=== PATIENT | male | born 1975 | race Caucasian/White ===

== ENCOUNTER 2016-12-30 13:59 | Inpatient (IN) | payer BC, OTHER ==
[~2016-12-30] VITALS: Ht 177.8 cm; Wt 83.9 kg
[~2016-12-30 13:59] MED LIST: ASCO250T5 PO; Bupropion Hcl PO; CLON0.1T14 PO; DICY20TA28 PO; FERR325T28 PO; GABA800T2 PO; Nicotine TD
[2016-12-30] MEDS ORDERED: LORAZEPAM 2 MG/1 ML VIAL IM PRN (14:30)
[2016-12-30] MEDS ORDERED: DIAZEPAM 5 MG TABLET PO PRN (14:30)
[2016-12-30] MEDS ORDERED: diphenhydrAMINE 50 MG CAPSULE PO PRN (14:30)
[2016-12-30] MEDS ORDERED: ONDANSETRON ODT 4 MG TAB.RAPDIS SL PRN (14:30)
[2016-12-30] MEDS ORDERED: ONDANSETRON 4 MG/2 ML VIAL IM PRN (14:30)
[2016-12-30] MEDS ORDERED: MAG HYDROX/AL HYDROX/SIMETH 30 ML LIQUID UDC PO PRN (14:30)
[2016-12-30] MEDS ORDERED: MAGNESIUM HYDROXIDE 30 ML LIQUID UDC PO PRN (14:30)
[2016-12-30] MEDS ORDERED: DIAZEPAM 10 MG TABLET PO PRN ×2 (14:30)
[2016-12-30] MEDS ORDERED: MIRALAX 17 GM POWD.PACK PO PRN (14:30)
[2016-12-30] MEDS ORDERED: ACETAMINOPHEN 325 MG TABLET PO PRN (14:30)
[2016-12-30] MEDS ORDERED: CLONIDINE HCL 0.1 MG TABLET PO PRN (14:30)
[2016-12-30] MEDS ORDERED: DICYCLOMINE HCL 20 MG TABLET PO PRN (14:30)
[2016-12-30] MEDS ORDERED: IBUPROFEN 600 MG TABLET PO PRN (14:30)
[2016-12-30] MEDS ORDERED: LOPERAMIDE HCL 2 MG CAPSULE PO PRN ×2 (14:30)
[2016-12-30] MEDS ORDERED: BUPRENORPHINE HCL 2 MG TAB.SUBL SL PRN (14:30)
[2016-12-30] MEDS ORDERED: METHOCARBAMOL 750 MG TABLET PO PRN (14:30)
[2016-12-30 15:12] LABS: *AMPHETAMINE, URINE NEGATIVE (NEGATIVE); *BARBITURATE, URINE NEGATIVE (NEGATIVE); *CANNABINOID, URINE POSITIVE (NEGATIVE); *COCCAINE, URINE NEGATIVE (NEGATIVE); *OPIATE, URINE POSITIVE (NEGATIVE); *PHENCYCLIDINE SCREEN,URINE NEGATIVE (NEGATIVE)
[2016-12-30 15:35] LABS: BASOPHILS # (AUTO) 0.1 K/uL (0.0-8.0); BASOPHILS % (AUTO) 1.6 % (0.0-2.0); EOSINOPHILS # (AUTO) 0.3 K/uL (0.0-0.7); EOSINOPHILS % (AUTO) 4.7 % (0.0-7.0); HEMATOCRIT 42.3 % (40-50); HEMOGLOBIN 13.4 G/DL (14.0-18.0); LYMPHOCYTES # (AUTO) 1.2 K/UL (0.8-4.8); MEAN CORPUSCULAR HEMOGLOBIN 26.2 UUG (27.0-31.0); MEAN CORPUSCULAR HGB CONC 32 g/dL (32.0-37.0); MEAN CORPUSCULAR VOLUME 82.4 FL (82.0-92.0); MONOCYTES # (AUTO) 0.5 K/UL (0.1-1.30); MONOCYTES % (AUTO) 8.8 % (0.0-11.0); NEUTROPHILS # (AUTO) 3.8 K/UL (1.8-8.9); NEUTROPHILS % (AUTO) 63.9 % (38.5-71.5); PLATELET COUNT (AUTO) 186 K/UL (150-450); RED BLOOD CELL COUNT(AUTO) 5.13 MIL/UL (4.7-6.1); WHITE BLOOD COUNT (AUTO) 5.9 K/UL (4.0-11.2)
[2016-12-30 15:38] LABS: ALANINE AMINOTRANSFERASE 54 U/L (16-63); ALKALINE PHOSPHATASE 49 U/L (50-136); ASPARTATE AMINOTRANSFERASE 25 U/L (15-37); BILIRUBIN,TOTAL 0.4 mg/dL (0.2-1.0); CARBON DIOXIDE 33 mmol/L (21-32); CHLORIDE 101 mmol/L (98-107); CREATININE 1.2 mg/dL (0.6-1.3); GLUCOSE 104 mg/dL (74-106); MAGNESIUM 1.9 mg/dL (1.8-2.4); POTASSIUM 4.5 mmol/L (3.5-5.1); TOTAL PROTEIN, SERUM 7.6 g/dL (6.4-8.2); UREA NITROGEN, BLOOD 9 mg/dL (7-18)
[2016-12-30 15:41] LABS: ETHANOL < 3 MG/DL (0-0)
[2016-12-30] MEDS ORDERED: BUPR300T52 PO (17:51)
--- NOTE | 2016-12-30 17:55 | NUR ---
Admission Note VS: BP: 114/72 HR: 84, SpO2: 98% RA, RR: 16, Temp: 98.2 Pain:0 Height:5'10" Weight: 185LB Allergies: TIANA Pt is a 41 y/o male admitted to [facility] on 12/30/16 at 1445. Pt has been admitted for Heroin and Xanax withdrawals under the care of Dr Dhlilon. Pt denies suicidal and homicidal ideations at this time. Pt denies Chest Pain and SOB. Pt did not bring any home medications with him but reports taking Gabapentin 800mg x4 and Wellbutrin 450mg x1. Pt reports living at sober living. Upon assessment skin intact. Pt denies history of falls. CIWA 3, COWS 3 upon admission for mild anxiety and agitation. A/Ox4 and able to answer questions necessary for the admission process. Pt denies having a PCP. Full Code. VS WNL, Regular Diet. Pt reports Hx of a seizures, last seizure 3 years ago due to benzo withdrawals. Pt denies any history of suicide attempts. Breathing is even and unlabored, SpO2 is 98% on RA. Pt ambulates with steady gait. Pt reports regular daily BM. Pt reports that he smokes 1 pack a day. Urine has been collected for UDS. All needs have been met. Pt has been oriented to the room and the unit. All safety measures in place per hospital policy. Bed in lowest position, side rails up x2 and padded, call-light within reach. Will continue to monitor. Substance Abuse: 1. Heroin 1g IV daily for 1month: Last use. 12/29/16 0.5-1g IV 2. Xanax 9-10mg orally daily for 1 month. Last use: 12/27/16 3mg orally
[2016-12-30] MEDS ORDERED: NICOTINE POLACRILEX 4 MG GUM-PK OF TEN BC PRN (19:00)
[2016-12-30] MEDS ORDERED: NICOTINE 14 MG/24HR PATCH TD PRN (19:00)
--- NOTE | 2016-12-30 19:22 | NUR ---
End of Shift Endorsement given to nightshift nurse. Pt has not received any PRN medications. Pt is a 41 y/o male admitted to [facility] on 12/30/16 at 1445. Pt has been admitted for Heroin and Xanax withdrawals under the care of Dr Dhillon. Pt denies suicidal and homicidal ideations at this time. Pt denies Chest Pain and SOB. Pt did not bring any home medications with him but reports taking Gabapentin 800mg x4 and Wellbutrin 450mg x1. Pt reports living at sober living. Upon assessment skin intact. Pt denies history of falls. CIWA 3, COWS 3 upon admission for mild anxiety and agitation. A/Ox4 and able to answer questions necessary for the admission process. Pt denies having a PCP. Full Code. VS WNL, Regular Diet. Pt reports Hx of a seizures, last seizure 3 years ago due to benzo withdrawals. Pt denies any history of suicide attempts. Breathing is even and unlabored, SpO2 is 98% on RA. Pt ambulates with steady gait. Pt reports regular daily BM. Pt reports that he smokes 1 pack a day. Urine has been collected for UDS. All needs have been met. Pt has been oriented to the room and the unit. All safety measures in place per hospital policy. Bed in lowest position, side rails up x2 and padded, call-light within reach. Will continue to monitor. Substance Abuse: 1. Heroin 1g IV daily for 1month: Last use. 12/29/16 0.5-1g IV 2. Xanax 9-10mg orally daily for 1 month. Last use: 12/27/16 3mg orally
--- NOTE | 2016-12-30 19:23 | NUR ---
Start of shift note Received report from day shift nurse. Pt is a 41 yo male, A+Ox4, presenting to [facility] for Opiate/Benzo dependence. Pt has NKA, is on Full code status, and on Regular diet. Pt is on Fall and Seizure precautions. Pt has HX of Anxiety, Depression, Bipolar, and Seizure. Pt is on 5 day Valium and 5 day Subutex tapers, tolerated well. No s/s of distress noted at this time. Respirations even and unlabored. Will continue to monitor.
[2016-12-30 20:11] VITALS: BP 128/61
[2016-12-30] MEDS: GABAPENTIN 400 MG CAPSULE PO SCH (20:19)
[2016-12-30] MEDS ORDERED: BUPRENORPHINE HCL 2 MG TAB.SUBL SL SCH (21:00)
[2016-12-30] MEDS ORDERED: DIAZEPAM 10 MG TABLET PO SCH (21:00)
[2016-12-31 00:54] VITALS: BP 124/65
[2016-12-31 04:12] VITALS: BP 126/68
--- NOTE | 2016-12-31 06:50 | NUR ---
End of shift note Pt is a 41 yo male, A+Ox4, presenting to [facility] for Opiate/Benzo dependence. Pt has NKA, is on Full code status, and on Regular diet. Pt is on Fall and Seizure precautions. Pt has HX of Anxiety, Depression, Bipolar, and Seizure. Pt is on 5 day Valium and 5 day Subutex tapers, tolerated well. Pt slept for a total of 4 HRS. Last COWS: 3 and Last CIWA: 3 @0400. No s/s of distress noted at this time. Respirations even and unlabored. Will endorse to day shift nurse.
--- NOTE | 2016-12-31 07:10 | NUR ---
Start of Shift Endorsement received from nightshift nurse. Pt is a 41 y/o male admitted for Heroin and Xanax dependence. Pt has been placed on a 4 day Valium and 4 day Subutex taper set to began 12/31/16. Pt is tolerating the detox process AEB COWS 3, CIWA 3 at 0400. Pt did not receive any PRN medications. Pt reports sleeping 4 hours and reports feeling tired. VS WNL. Full Code. PT is alert and oriented x4. Pt is in STABLE condition at this time. Remains compliant with medication and diet regimen. All needs have been met, All safety measures in place per hospital policy. Bed in lowest position, side rails up x2, call-light within reach. Will continue to monitor
[2016-12-31 08:00] VITALS: BP 130/74
[2016-12-31] MEDS: GABAPENTIN 400 MG CAPSULE PO SCH ×4 (08:44→20:14)
[2016-12-31] MEDS: BUPRENORPHINE HCL 2 MG TAB.SUBL SL SCH ×3 (08:45→20:16)
[2016-12-31] MEDS: DIAZEPAM 10 MG TABLET PO SCH ×3 (08:45→20:14)
[2016-12-31] MEDS ORDERED: TUBERCULIN,PURIF.PROT.DERIV. 5 TU/0.1 ML TEST ID ONE (09:00)
[2016-12-31 11:07] LABS: HEPATITIS B SURFACE AG Negative (Negative)
[2016-12-31 12:00] VITALS: BP 102/62
[2016-12-31] MEDS ORDERED: HYDROXYZINE PAMOATE 25 MG CAPSULE PO PRN (13:15)
[2016-12-31 16:00] VITALS: BP 109/59
--- NOTE | 2016-12-31 18:38 | NUR ---
End of Shift Endorsement given to nightshift nurse. Pt is a 41 y/o male admitted for Heroin and Xanax dependence. Pt has been placed on a 4 day Valium and 4 day Subutex taper set to began 12/31/16. Pt is tolerating the detox process AEB COWS 7, CIWA 4 at 1600. Pt did not receive any PRN medications. Pt participated in groups and activities. Educated pt on diet and medication regimen. VS WNL. Full Code. PT is alert and oriented x4. Pt is in STABLE condition at this time. Remains compliant with medication and diet regimen. All needs have been met, All safety measures in place per hospital policy. Bed in lowest position, side rails up x2, call-light within reach. Will continue to monitor
[2016-12-31 20:00] VITALS: BP 111/75
--- NOTE | 2016-12-31 20:00 | NUR ---
START OF SHIFT NOTE RECEIVED REPORT FROM DAY SHIFT NURSE. PATIENT IS A 41 YEAR OLD MALE ADMITTED FOR OPIATE AND BENZO DEPENDENCE. PATIENT IS ON 4 DAY ATIVAN AND 4 DAY SUBUTEX TAPER. PATIENT REPORTS PMH OF ANXIETY, DEPRESSION , BIPOLAR AND SEIZURE, LAST ONE WAS 3 YEARS AGO. ON FALL/SEIZURE PRECAUTION. SKIN INTACT. PATIENT DID NOT REQUIRE ANY PRN MEDICATION. LAST COWS 7 AND CIWA 4. RECEIVED PATIENT IN THE ROOM, ALERT AND ORIENTED X 4. RESPIRATION EVEN AND UNLABORED. PATIENT REPORTS ANXIETY, SWEATING , N/V, ATTEND GROUPS, HE STATES HIS APPETITE IS BACK AND HAS BACK ACHE 3/10, TOLERABLE. SAFETY MEASURES IN PLACE. CALL LIGHT IN REACH. WILL CONTINUE TO MONITOR.
[2017-01-01] VITALS: BP 110/70
--- NOTE | 2017-01-01 | NUR ---
COWS/CIWA DEFERRED PATIENT SLEEPING. COWS AND CIWA DEFERRED. RESPIRATION EVEN AND UNLABORED. SAFETY MEASURES IN PLACE. CALL LIGHT IN REACH. WILL CONTINUE TO MONITOR
[2017-01-01 04:00] VITALS: BP 114/66
--- NOTE | 2017-01-01 04:00 | NUR ---
COWS/CIWA DEFERRED PATIENT SLEEPING. COWS AND CIWA DEFERRED. RESPIRATION EVEN AND UNLABORED. SAFETY MEASURES IN PLACE. CALL LIGHT IN REACH. WILL CONTINUE TO MONITOR
--- NOTE | 2017-01-01 06:53 | NUR ---
END OF SHIFT NOTE PATIENT IS A 41 YEAR OLD MALE ADMITTED FOR OPIATE AND BENZO DEPENDENCE. PATIENT IS ON 4 DAY ATIVAN AND 4 DAY SUBUTEX TAPER, TOLERATED WELL, NO ADVERSE REACTION. PATIENT DID NOT REQUIRE ANY PRN MEDICATION. PATIENT COMPLIANT WITH MEDICATION AND TREATMENT PLAN. PER PATIENT MEDICATIONS ARE EFFECTIVE IN CONTROLLING HIS WITHDRAWAL SYMPTOMS. PATIENT ATTEND GROUPS. EATING AND DRINKING FLUIDS WELL. SAFETY MEASURES IN PLACE. CALL LIGHT IN REACH. WILL CONTINUE TO MONITOR. SLEPT 8 HOURS. FLUID INTAKE 795 ML. VOIDED X 2. NO BM. LAST COWS 7 AND CIWA 5.
--- NOTE | 2017-01-01 07:20 | NUR ---
BEGINNING OF SHIFT Patient endorsement report received from cnc machinist 2nd shift nurse, all pertinent information discussed. Patient is a 41 year old male admitted on: 12/30/2016 with admitting Dx: opiate/bzo dependence. Patient currently with ongoing 4 day Valium and 4 day Subutex taper as ordered. Medications well tolerated. Per cnc machinist 2nd shift patient received no PRN during shift. Patient with last cow score of: 7 and last ciwa score of: 5. Patient slept for 8 hours. Patient received awake, alert and oriented x4, educated patient regarding plan of care for the day and medication regimen with good verbal understanding. Safety masques in lace. call light kept with in reach, Fall and seizure precautions in place. will continue to monitor closely.
[2017-01-01 08:13] VITALS: BP 110/65
[2017-01-01] MEDS: GABAPENTIN 400 MG CAPSULE PO SCH ×4 (08:39→21:46)
[2017-01-01] MEDS: DIAZEPAM 5 MG TABLET PO SCH ×2 (08:39→14:12)
[2017-01-01] MEDS: buPROPion XL 150 MG TAB.SR.24H PO SCH (08:40)
[2017-01-01] MEDS: BUPRENORPHINE HCL 2 MG TAB.SUBL SL SCH ×3 (08:40→21:48)
[2017-01-01 13:40] VITALS: BP 105/66
--- NOTE | 2017-01-01 14:11 | NUR ---
THerapist prompted client to attend group today. Client agreed to attend.
[2017-01-01] MEDS ORDERED: KETOROLAC TROMETHAMINE 30 MG INJ IM PRN (15:30)
[2017-01-01 16:52] VITALS: BP 97/64
--- NOTE | 2017-01-01 17:15 | NUR ---
PRN ROBAXIN Patient c/o muscle aches 08/25, provided with non pharmacological interventions with no relief, administered Robaxin as ordered, will monitor effectiveness.
--- NOTE | 2017-01-01 18:15 | NUR ---
ROBAXIN REASSESSMENT Patient reports medication effective, current pain level 0/10. Will conitnue to monitor.
--- NOTE | 2017-01-01 18:58 | NUR ---
END OF SHIFT Patient alert and oriented x4, patient compliant with therapeutic plan of care. vital signs were stable during shift. Patient continues with ongoing 4 day Valium and 4 day Subutex tapers as ordered, well tolerated, no ASE noted. 0900 assessment patient presented with: c/o chills, difficulty sitting still, mild bone and joint aches, nasal stuffiness, stomach cramps, yawning x1, irritable, anxiety, tremors that can be felt but not seen, and mild agitation with cow score of: 9 and ciwa score of: 6; 1300 assessment patient presented with: c/o chills, mild bone and joint aches, stomach cramps, tremors that can be felt but seen, anxiety, barely sweating with cow score of: 7 and ciwa score of: 5; 1700 assessment patient presented with: c/o chills, mild bone and joint aches, stomach cramps, tremors that can be felt but seen, anxiety, barely sweating with cow score of: 7 and ciwa score of: 5. Patient encouraged adequate PO fluid intake as tolerated, Encouraged to attend group therapies/sessions to learn new coping skills to prevent relapse, denies any SI/HI. Patient administered PRN: Robaxin as ordered, medication effective. Patients safety measures are in place. all needs met and rendered. Patient endorsement report given to wire coiler nurse, all pertinent information discussed. Safety measurers in place. will continue to monitor.
[2017-01-01 20:00] VITALS: BP 133/67
--- NOTE | 2017-01-01 20:00 | NUR ---
START OF SHIFT Received report from day shift nurse. Pt attended a group meeting and returned to his room after. He is a 41 yo male admitted to [facility] on 12/30 for opiate and BZD dependence. He is A&O and ambulatory NKA, full code status, and on a regular diet. He has a PMH of seizure, anxiety, depression, and bipolar. On admission he reported using heroin 1 gram per day and Xanax 9-10mg per day. 4 day valium and 4 day Subutex taper started 12/31. He reports chills, hot and cold flashes, and mild headache. Tapers due tonight. Fall and seizure precautions in place. Bed is down with call light in reach.
[2017-01-01] MEDS ORDERED: DIAZEPAM 10 MG TABLET PO SCH (21:00)
[2017-01-01] MEDS: BACLOFEN 10 MG TABLET PO SCH (21:46)
[2017-01-02] VITALS: BP 125/84
--- NOTE | 2017-01-02 | NUR ---
0000 COWS and CIWA deferred COWS and CIWA ordered Q4HWA. Pt is lying in bed resting with eyes closed. Vital signs obtained. Safety measures in place.
--- NOTE | 2017-01-02 04:00 | NUR ---
0400 Vitals refused/COWS and CIWA deferred Pt refused to be woken for 0400 vitals. He is lying in bed resting with eyes closed. Respirations even and unlabored. COWS and CIWA ordered Q4HWA. Safety measures in place.
--- NOTE | 2017-01-02 07:25 | NUR ---
END OF SHIFT Report provided to day shift nurse. Pt is lying in bed resting. He is a 41 yo male admitted to [facility] on 12/30 for opiate and BZD dependence. He is A&O and ambulatory NKA, full code status, and on a regular diet. He has a PMH of seizure, anxiety, depression, and bipolar. On admission he reported using heroin 1 gram per day and Xanax 9-10mg per day. 4 day valium and 4 day Subutex taper started 12/31. He is compliant with treatment. No PRN medications administered. Last COWS 5 and CIWA 6 before night medications. He drank 1650mL and slept for 7 hours. Tapers due tonight. Fall and seizure precautions in place. Bed is down with call light in reach.
[2017-01-02 08:00] VITALS: BP 112/65
--- NOTE | 2017-01-02 08:00 | NUR ---
START OF SHIFT 41 year old male admitted on 12/30 for opiate and benzo dependence. NKA, full code status, and on a regular diet. PMH of seizure, anxiety, depression, and bipolar disorder. On 4 day valium and 4 day Subutex taper started 12/31. History of treatment at [facility] in 01/2016 and 02/2016. Received report from night RN. PT slept for 7 hours. COWS 5 and CIWA 6 at 2145. On fall and seizure precautions. 0800 nursing rounds, pt is alert and oriented. Bed in low position and locked, call verde within reach, side rails up x 2 and padded. Will continue to monitor.
[2017-01-02] MEDS: buPROPion XL 150 MG TAB.SR.24H PO SCH (08:34)
[2017-01-02] MEDS: BACLOFEN 10 MG TABLET PO SCH ×2 (08:34→14:27)
[2017-01-02] MEDS: GABAPENTIN 400 MG CAPSULE PO SCH ×4 (08:34→21:25)
[2017-01-02] MEDS ORDERED: DIAZEPAM 5 MG TABLET PO SCH (09:00)
[2017-01-02] MEDS ORDERED: BUPRENORPHINE HCL 2 MG TAB.SUBL SL SCH (09:00)
[2017-01-02 12:00] VITALS: BP 116/54
--- NOTE | 2017-01-02 14:27 | NUR ---
PRN MEDICATION ADMINISTRATION Pt states he has not had a bowel movement in 2-3 days. Given Miralax PRN. Will reassess.
[2017-01-02] MEDS: DIAZEPAM 10 MG TABLET PO SCH ×2 (14:45→21:25)
[2017-01-02] MEDS: BUPRENORPHINE HCL 2 MG TAB.SUBL SL SCH ×2 (14:46→21:25)
--- NOTE | 2017-01-02 15:27 | NUR ---
PRN MEDICATION REASSESSMENT Pt states no BM since Miralax given one hour ago. Will continue to monitor.
--- NOTE | 2017-01-02 17:04 | NUR ---
TRANSITION OF CARE 41 year old male admitted on 12/30 for opiate and benzo dependence. NKA, full code status, and on a regular diet. PMH of seizure, anxiety, depression, and bipolar disorder. On 4 day valium and 4 day Subutex taper started 12/31. History of treatment at [facility] in 01/2016 and 02/2016. Report given to charge master specialist Leah. Last COW 4 and CIWA 2 at 1200. PRN Miralax given at 1427. No BM as of 1527. Bed in low position and locked, call verde within reach, side rails up x 2 and padded. Will continue to monitor.
--- NOTE | 2017-01-02 17:42 | NUR ---
Therapist prompted client to attend groups today,. Client did attend group.
[2017-01-02 17:53] VITALS: BP 129/76
--- NOTE | 2017-01-02 19:56 | NUR ---
end of shift note: pt is in stable condition at this time no s/s of pain or discomfort. pt is admitted to [facility] for opiate/benzo withdrawal/dependence. pts last cows 4 and last ciwa 2. pt without A/R noted pt tolerating well. will endorse pt to technician plant and maintenance nurse.
[2017-01-02 20:00] VITALS: BP 103/68
--- NOTE | 2017-01-02 20:00 | NUR ---
START OF SHIFT Received report from day shift nurse. Pt attended a group meeting and returned to his room after. He is a 41 yo male admitted to [facility] on 12/30 for opiate and BZD dependence. He is A&O and ambulatory NKA, full code status, and on a regular diet. He has a PMH of seizure, anxiety, depression, and bipolar. On admission he reported using heroin 1 gram per day and Xanax 9-10mg per day. 4 day valium and 4 day Subutex taper started 12/31. He reports anxiety and mild headache. Tapers due tonight. Fall and seizure precautions in place. Bed is down with call light in reach.
[2017-01-02] MEDS: BACLOFEN 20 MG TABLET PO SCH (21:25)
--- NOTE | 2017-01-03 | NUR ---
0000 Vitals refused/COWS and CIWA deferred Pt refused to be woken for 0400 vitals. He is lying in bed resting with eyes closed. Respirations even and unlabored. COWS and RICARDO ordered Q4HWA. Safety measures in place. Addendum: 01/03/17 at 0558 by ZULEYKA JOHNSON RN Pt refused to be woken for 0000 vitals.
--- NOTE | 2017-01-03 07:21 | NUR ---
END OF SHIFT Report provided to day shift nurse. Pt. is lying in bed resting. He is a 41 yo male admitted to [facility] on 12/30 for opiate and BZD dependence. He is A&O and ambulatory. NKA, full code status, and on a regular diet. He has a PMH of seizure, anxiety, depression, and bipolar. On admission he reported using heroin 1 gram per day and Xanax 9-10mg per day. Modified valium and 4 day Subutex taper started 12/31. He is compliant with treatment. Tapers are working well to manage withdrawal symptoms. No PRN medications administered. Last COWS 3 and CIWA 3 before medications. He drank 1000mL and slept for 9 hours. Fall and seizure precautions in place. Bed is down with call light in reach.
--- NOTE | 2017-01-03 07:38 | NUR ---
START OF SHIFT Pt is a 41 yr old male, A&Ox3. Pt was admitted on 12/30/16 for Opiate/Benzo Dependence and is on 4 day Valium and 4 day Subutex taper as ordered. Medication joann well. Received report from product promoter retail pet nurse. No PRN's were given during the night. Last COWS score was 3 and CIWA score was 3 at 2000. Pt slept for 9 hrs. Pt is full code, regular diet and NKA. Pt is currently in bed, resting with respirations even and unlabored. No acute distress noted. Skin is intact, warm and dry to touch. Pt is on fall and seizure precautions. Bed kept in low positions and locked with side rails up x2. Call light is within reach. Will continue to monitor.
[2017-01-03 08:00] VITALS: BP 125/71
[2017-01-03] MEDS ORDERED: DIAZEPAM 5 MG TABLET PO SCH (09:00)
[2017-01-03] MEDS ORDERED: BUPRENORPHINE HCL 2 MG TAB.SUBL SL SCH (09:00)
[2017-01-03] MEDS: BACLOFEN 20 MG TABLET PO SCH ×3 (09:22→20:39)
[2017-01-03] MEDS: DIAZEPAM 5 MG TABLET PO SCH ×2 (09:23→20:39)
[2017-01-03] MEDS: GABAPENTIN 400 MG CAPSULE PO SCH ×2 (09:23→12:38)
[2017-01-03] MEDS: buPROPion XL 150 MG TAB.SR.24H PO SCH (09:23)
[2017-01-03] MEDS: BUPRENORPHINE HCL 2 MG TAB.SUBL SL SCH ×2 (09:23→20:39)
--- NOTE | 2017-01-03 12:30 | NUR ---
RESUMED CARE Resumed care of client, all pertinent information received.
[2017-01-03] MEDS ORDERED: METHYL SALICYLATE/MENTHOL CREAM 28 GM TUBE TOP PRN (12:45)
[2017-01-03] MEDS: NICOTINE 14 MG/24HR PATCH TD SCH (13:00)
[2017-01-03] MEDS ORDERED: NAPROXEN 500 MG TABLET PO PRN (13:00)
[2017-01-03 13:01] VITALS: BP 111/62
--- NOTE | 2017-01-03 13:36 | NUR ---
REFUSING NICOTINE PATCH Pt states "I don't want the patch yet." Education on smoking cessation provided.
[2017-01-03] MEDS: GABAPENTIN 300 MG CAPSULE PO SCH ×2 (16:43→20:39)
--- NOTE | 2017-01-03 16:54 | NUR ---
PRN MAALOX Pt c/o heartburn. PRN Maalox administered as ordered. Will reassess.
[2017-01-03 16:55] VITALS: BP 116/68
--- NOTE | 2017-01-03 17:54 | NUR ---
REASSESSMENT Pt states medication was not effective, MD ordered CXR, and EKG at this time.
--- NOTE | 2017-01-03 19:00 | NUR ---
Start of Shift Patient Received. Patient is in his room sleeping. Breathing even and non labored. No signs of pain or discomfort noted. Patient is a 41 year old male admitted on 12/30/16 for Opiate and Benzo Dependence under the care of Dr. Dhillon. Patient is currently receiving a 4 day Subutex taper and 4 day Valium taper. Patient verbalizes no known allergies, wishes to be full code, following a regular diet, placed on fall and seizure precautions, with skin noted intact. Past medical history of anxiety, depression, Bipolar, and history of seizures 3 years ago. Per endorsement, patient was given PRN Maalox for heart burn with medication noted to be effective. Patient was also verbalizing chest pain. EKG ordered and noted to be WNL. Last noted COWS 2 and CIWA 2. All needs attended to promptly. Will continue plan of care as ordered.
--- NOTE | 2017-01-03 19:04 | NUR ---
END OF SHIFT Most recent COWS 2 and CIWA 2 at 1700. PRN Maalox administered and not effective. EKG is WNL. Chest X ray results are pending at this time, night nurse to follow up. V/S remain WNL. Heart rate is WNL, rhythm is sinus normal. Eats 100% of meals, denies BM on this shift. Pt encouraged to attend groups and activities. Pt socializes with peers. Safety measures are in place, night nurse to continue monitoring.
[2017-01-03 20:35] VITALS: BP 121/74
[2017-01-03] MEDS: NAPROXEN 500 MG TABLET PO SCH (20:39)
[2017-01-04 00:25] VITALS: BP 119/76
[2017-01-04 04:03] VITALS: BP 116/79
--- NOTE | 2017-01-04 07:16 | NUR ---
End of Shift Patient is in his room sleeping. Breathing even and non labored. No signs of pain or discomfort noted. Patient is a 41 year old male admitted on 12/30/16 for Opiate and Benzo Dependence and continues on a 4 day Subutex taper and 4 day Valium taper. No Known Allergies, Full Code, following a regular diet, placed on fall and seizure precautions, with skin noted intact. Past medical history of anxiety, depression, Bipolar, and history of seizures 3 years ago. No PRN Medications administered. Last noted CIWA 4 and COWS 2. All needs attended to promptly. Will endorse to continue plan of care as ordered.
--- NOTE | 2017-01-04 07:30 | NUR ---
START OF SHIFT Pt is a 41 yr old male, A&Ox3. Pt was admitted on 12/30/16 for Opiate/Benzo Dependence and is on 4 day Valium and 4 day Subutex taper as ordered. Medication joann well. Received report from night supervisor nurse. No PRN's were given during the night. Last COWS score was 2 and CIWA score was 4 at 2000. Pt slept for 9 hrs. Pt is full code, regular diet and NKA. Pt is currently in bed, resting with respirations even and unlabored. No acute distress noted. Skin is intact, warm and dry to touch. Pt is on fall and seizure precautions. Bed kept in low positions and locked with side rails up x2. Call light is within reach. Will continue to monitor.
[2017-01-04 08:00] VITALS: BP 122/64
[2017-01-04] MEDS: NICOTINE 14 MG/24HR PATCH TD SCH (09:00)
[2017-01-04] MEDS ORDERED: BUPRENORPHINE HCL 2 MG TAB.SUBL SL SCH (09:00)
[2017-01-04] MEDS ORDERED: DIAZEPAM 5 MG TABLET PO SCH (09:00)
[2017-01-04] MEDS: BACLOFEN 20 MG TABLET PO SCH ×3 (09:12→20:36)
[2017-01-04] MEDS: buPROPion XL 150 MG TAB.SR.24H PO SCH (09:12)
[2017-01-04] MEDS: FAMOTIDINE 20 MG TABLET PO SCH (09:13)
[2017-01-04] MEDS: NAPROXEN 500 MG TABLET PO SCH ×2 (09:13→20:36)
[2017-01-04] MEDS: GABAPENTIN 300 MG CAPSULE PO SCH ×5 (09:13→20:36)
--- NOTE | 2017-01-04 09:17 | NUR ---
NICODERM PATCH HELD Pt states of wanting to smoke today during the day. pt was educated on smoking cessation but refused to apply NicoDerm patch as ordered. Will continue to monitor.
[2017-01-04 13:18] VITALS: BP 123/74
[2017-01-04 16:00] VITALS: BP 105/52
--- NOTE | 2017-01-04 18:53 | NUR ---
END OF SHIFT Pt is a 41 yr old male, A A&Ox4. Pt was admitted on 12/30/16 for Opiate/Benzo Dependence and is on 4 day Valium and 4 day Subutex taper as ordered. Medication joann well. Pt has been cooperative with medication regimen and plan of care. Pt refused to attend group sessions. No PRNs were given during the day. Last COWS score was 2 and CIWA score was 1 at 1600. Pt is full code, regular diet and NKA. Pt denies any anxiety at this time. Skin is intact, warm and dry to touch. Pt is to be discharged tomorrow on 01/05/17. Pt is on fall and seizure precautions. Bed kept in low positions and locked with side rails up x2. Call light is within reach.
--- NOTE | 2017-01-04 19:00 | NUR ---
Start of Shift Patient Received. Patient is in group activities participating in group activities. Patient is a 41 year old male admitted on 12/30/16 for Opiate and Benzo Dependence and completed a 4 day Subutex and 4 day Valium taper. No Known Allergies, Full Code, following a regular diet, placed on fall and seizure precautions, with skin noted intact. Past medical history of anxiety, depression, Bipolar, and history of seizures 3 years ago. No PRN Medications administered. Last noted CIWA 2 and COWS 3. Patient is set for discharge tomorrow 01/05/17. All needs attended to promptly. Will continue plan of care as ordered.
[2017-01-04] MEDS ORDERED: GABA-534 PO (20:22)
[2017-01-04] MEDS ORDERED: FAMO20TA8 PO (20:22)
[2017-01-04] MEDS ORDERED: NAPR500T3 PO (20:22)
[2017-01-04] MEDS ORDERED: DICY20TA28 PO (20:22)
[2017-01-04] MEDS ORDERED: DIPH50CA37 PO (20:22)
[2017-01-04] MEDS ORDERED: NICO1PAT25 TD (20:22)
[2017-01-04] MEDS ORDERED: BACL20TA PO (20:22)
[2017-01-04] MEDS ORDERED: HYDR-3895 PO (20:22)
[2017-01-04 20:33] VITALS: BP 129/81
[2017-01-05 00:02] VITALS: BP 122/73
[2017-01-05 04:20] VITALS: BP 125/83
--- NOTE | 2017-01-05 07:04 | NUR ---
End of Shift Patient is in his room, awake, alert and verbally responsive. Breathing even and non labored. Patient is a 41 year old male admitted on 12/30/16 for Opiate and Benzo Dependence and completed a 4 day Subutex and 4 day Valium taper. No Known Allergies, Full Code, following a regular diet, placed on fall and seizure precautions, with skin noted intact. Past medical history of anxiety, depression, Bipolar, and history of seizures 3 years ago. No PRN Medications administered. Last noted CIWA 2 and COWS 3. Patient is set for discharge today 01/05/17. All needs attended to promptly. Will endorse to continue plan of care as ordered.
--- NOTE | 2017-01-05 07:31 | NUR ---
START OF SHIFT Pt is a 41 yr old male, A&Ox3. Pt was admitted on 12/30/16 for Opiate/Benzo Dependence and has completed 4 day Valium and 4 day Subutex taper as ordered. Medication joann well. Received report from manager shift nurse. No PRN's were given during the night. Last COWS score was 2 and CIWA score was 3 at 2000. Pt slept for 7 hrs. Pt is to be discharged today to [facility]. Pt is full code, regular diet and NKA. Pt is currently in bed, resting with respirations even and unlabored. No acute distress noted. Skin is intact, warm and dry to touch. Pt is on fall and seizure precautions. Bed kept in low positions and locked with side rails up x2. Call light is within reach. Will continue to monitor.
[2017-01-05 08:00] VITALS: BP 117/64
[2017-01-05] MEDS: GABAPENTIN 300 MG CAPSULE PO SCH (08:42)
[2017-01-05] MEDS: NICOTINE 14 MG/24HR PATCH TD SCH (08:42)
[2017-01-05] MEDS: FAMOTIDINE 20 MG TABLET PO SCH (08:42)
[2017-01-05] MEDS: buPROPion XL 150 MG TAB.SR.24H PO SCH (08:42)
[2017-01-05] MEDS: NAPROXEN 500 MG TABLET PO SCH (08:42)
[2017-01-05] MEDS: BACLOFEN 20 MG TABLET PO SCH (08:42)
--- NOTE | 2017-01-05 09:25 | NUR ---
DISCHARGE NOTE Pt is a 41 yr old male, A&Ox3. Pt was admitted on 12/30/16 for Opiate/Benzo Dependence and has completed 4 day Valium and 4 day Subutex taper as ordered. Pt was cooperative with medication regimen and plan of care. Pt was educated on discharge summary and prescriptions. Pt was able to verbalize understanding. COWS score was 1 and CIWA score was 1 prior to discharge. Pt was discharged off the unit on 01/05/17 at 0917 in stable condition. Pt left with all belongings and valuables. No home medication was brought from home.
== END 2017-01-05 07:31 | DRG 895 ==
LOC: SRC 14:10
PROVIDERS: ADMIT Internal Medicine; ATTEND Internal Medicine
PROC: HZ2ZZZZ Detoxification Services for Substance Abuse Treatment (ICD-10-PCS; principal; 2016-12-30)
PROC: HZ31ZZZ Individual Counseling for Substance Abuse Treatment, Behavioral (ICD-10-PCS; 2017-01-01)
PROC: HZ41ZZZ Group Counseling for Substance Abuse Treatment, Behavioral (ICD-10-PCS; 2017-01-02)
DX: F13.230 Sedative, hypnotic or anxiolytic dependence with withdrawal, uncomplicated (principal); E87.3 Alkalosis; F33.2 Major depressive disorder, recurrent severe without psychotic features; F11.23 Opioid dependence with withdrawal; F12.10 Cannabis abuse, uncomplicated; E86.0 Dehydration; F17.210 Nicotine dependence, cigarettes, uncomplicated; Z81.1 Family history of alcohol abuse and dependence; Z82.49 Family history of ischemic heart disease and other diseases of the circulatory system; Z83.3 Family history of diabetes mellitus; F41.9 Anxiety disorder, unspecified; Z91.5 Personal history of self-harm; D64.9 Anemia, unspecified
CPT/HCPCS: 36415; 70030-TC; 71010; 80307; 80349; 80361; 83735; 85025; 86592; 86705; 86803; 87340; 87806; 93005; A4663; G0480